=== PATIENT | male | born 1940 | race Caucasian/White ===

== ENCOUNTER 2019-02-02 22:10 | Inpatient (IN) | payer MEDICARE ==
[2019-02-02] MEDS ORDERED: NS 0.9% 1000 ML** 1,000 ML IV ONE (22:20)
[2019-02-02] MEDS ORDERED: Morphine 4 MG/ML VIAL (1 ml) 4 MG/ML VIAL IV ONE (22:20)
[2019-02-02] MEDS ORDERED: Ondansetron INJ* 2 MG/ML VIAL IV ONE (22:21)
--- NOTE | 2019-02-02 22:43 | ED ---
GI/ HPI - HPI Summary HPI Summary: 78-year-old male presents with abdominal pain today. He states he had pain in his epigastric region that radiates to the back. He states that he feels clammy. Denies any chest pressures or shortness of breath. He admits to nausea vomiting. No diarrhea or constipation. He had a normal bowel movement today. no blood in his stool. No urinary symptoms. He has never had this pain before. Denies any previous belly surgeries. Has history of high cholesterol and high blood pressure. He states it feels similar to gas pain. He hasn't taking anything for his symptoms. States his pain started 2:00pm and hasn't gotten worse. denies any urinary symptoms. no loss of bowel or bladder or saddle ansethesia. - History of Current Complaint Chief Complaint: EDAbdPain Time Seen by Provider: 02/02/19 22:15 Stated Complaint: ABD PAIN PER EMS Pain Intensity: 10 - Allergy/Home Medications Allergies/Adverse Reactions: Allergies Allergy/AdvReac Type Severity Reaction Status Date / Time No Known Allergies Allergy Verified 02/02/19 22:12 Home Medications: Home Medications Aspirin 81 mg PO DAILY 02/02/19 [History Confirmed 02/02/19] Atenolol 25 mg PO DAILY 02/02/19 [History Confirmed 02/02/19] Losartan Potassium 20 mg PO DAILY 02/02/19 [History Confirmed 02/02/19] Simvastatin 40 mg PO DAILY 02/02/19 [History Confirmed 02/02/19] PMH/Surg Hx/FS Hx/Imm Hx Endocrine/Hematology History: Denies: Hx Anticoagulant Therapy Cardiovascular History: Reports: Hx Hypercholesterolemia, Hx Hypertension Infectious Disease History: No Infectious Disease History: Denies: Traveled Outside the [place] in Last 30 Days - Family History Known Family History: Positive: Hypertension - Social History Substance Use Type: Reports: None Hx Tobacco Use: No Review of Systems Negative: Fever Negative: Chest Pain Negative: Shortness Of Breath Positive: Abdominal Pain, Vomiting, Nausea. Negative: Diarrhea All Other Systems Reviewed And Are Negative: Yes Physical Exam Triage Information Reviewed: Yes Vital Signs On Initial Exam: Initial Vitals Temp Pulse Resp BP Pulse Ox 98.3 F 58 20 156/88 94 02/02/19 22:12 02/02/19 22:12 02/02/19 22:12 02/02/19 22:12 02/02/19 22:12 Vital Signs Reviewed: Yes Appearance: Positive: Well-Appearing Skin: Positive: Warm, Dry Head/Face: Positive: Normal Head/Face Inspection Eyes: Positive: Normal, Conjunctiva Clear ENT: Positive: Pharynx normal Respiratory/Lung Sounds: Positive: Clear to Auscultation, Breath Sounds Present Cardiovascular: Positive: Normal, RRR Abdomen Description: Positive: Soft, Other: - tenderness epigastric. Negative: CVA Tenderness (R), CVA Tenderness (L) Bowel Sounds: Positive: Present Musculoskeletal: Positive: Normal Neurological: Positive: Normal Psychiatric: Positive: Normal Diagnostics - Vital Signs Vital Signs Temp Pulse Resp BP Pulse Ox 02/02/19 22:27 22 02/02/19 22:25 73 20 149/79 93 02/02/19 22:22 77 92 02/02/19 22:12 98.3 F 58 20 156/88 94 - Laboratory Result Diagrams: 02/02/19 22:41 02/02/19 22:41 Lab Statement: Any lab studies that have been ordered have been reviewed, and results considered in the medical decision making process. - CT abd CT Interpretation Completed By: Radiologist Summary of CT Findings: IMPRESSION: 1. No acute vascular findings. 2. Distended stomach and small bowel loop to the level of proximal ileum which. contains fecal material, most consistent with developing high grade small bowel. obstruction. 3. Colonic diverticulosis with no evidence of acute diverticulitis. 4. A small hiatal hernia. 5. Enlarged prostate gland. - EKG No standard instances Cardiac Rate: NL EKG Rhythm: Sinus Rhythm Summary of EKG Findings: sinus rhythm Re-Evaluation - Re-Evaluation First Eval Re-Evaluation Time: 23:57 Change: Improved Comment: pain resolved Second Eval Comment: only complaining of back pain now, states has not passed gas since this morning. GIGU Course/Dx - Course Course Of Treatment: 78-year-old male presents with abdominal pain today. He states he had pain in his epigastric region that radiates to the back. He states that he feels clammy. Denies any chest pressures or shortness of breath. He admits to nausea vomiting. No diarrhea or constipation. He had a normal bowel movement today. no blood in his stool. No urinary symptoms. He has never had this pain before. Denies any previous belly surgeries. Has history of high cholesterol and high blood pressure. He states it feels similar to gas pain. He hasn't taking anything for his symptoms. States his pain started 2:00pm and hasn't gotten worse. on exam tenderness in epigastric region. ekg shows sinus rhythm. wbc 12. troponin zero. crp 10. got CTA as has risk factors for AAA. no pulsatile mass felt. CT shows high grade small bowel obstruction. patient claims that has been burping. discussed case with dr lu who says to call surgery. spoke with dr anaya who will consult. - Diagnoses Differential Diagnoses - Male: Bowel Obstruction, Gastritis, Other - AAA Provider Diagnoses: Small bowel obstruction Discharge - Sign-Out/Discharge Documenting (check all that apply): Patient Departure - Discharge Plan Condition: Stable Disposition: ADMITTED TO [facility] Referrals: Tammi Shay MD [Primary Care Provider] - - Billing Disposition and Condition Condition: STABLE Disposition: Admitted to [facility]
[2019-02-02 23:03] LABS: ABS Basophils 0.1 10^3/ul (0-0.2); ABS Eosinophils 0.3 10^3/ul (0-0.6); ABS Lymphocytes 1.6 10^3/ul (1.0-4.8); ABS Monocytes 0.6 10^3/ul (0-0.8); ABS Neutrophils 9.3 10^3/ul (1.5-7.7); Eosinophil % 2.7 %; Hematocrit 46 % (42-52); Hemoglobin 14.8 g/dL (14.0-18.0); Lymphocyte % 13.8 %; Mean Corpuscular HGB Conc 33 g/dL (31-36); Mean Corpuscular Hemoglobin 28 pg (27-31); Mean Corpuscular Volume 86 fL (80-94); Mean Platelet Volume 8.7 fL (7.4-10.4); Nucleated Red Blood Cells % 0.1; Platelet Count 297 10^3/uL (150-450); Red Blood Count 5.32 10^6 /uL (4.18-5.48); Red Cell Distribution Width 16 % (10.5-15)
[2019-02-02 23:17] LABS: ALT 11 U/L (7-52); AST 12 U/L (13-39); Albumin 3.8 g/dL (3.2-5.2); Albumin/Globulin Ratio 1.5 (1-3); Alkaline Phosphatase 93 U/L (34-104); Anion Gap 7 mmol/L (2-11); Blood Urea Nitrogen 17 mg/dL (6-24); C Reactive Protein 10.31 mg/L (<8.01); CO2 Carbon Dioxide 24 mmol/L (22-32); Calcium 8.4 mg/dL (8.6-10.3); Chloride 110 mmol/L (101-111); EGFR African American 111.8 (>60); EGFR Non-African American 92.4 (>60); Globulin 2.6 g/dL (2-4); Glucose 151 mg/dL (70-100); Sodium 141 mmol/L (135-145); Total Protein 6.4 g/dL (6.4-8.9)
[2019-02-02] MEDS ORDERED: Iodixanol* (CONTRAST) 320 MG/ML 100 ML SDV IV ONE (23:31)
[2019-02-03] MEDS ORDERED: Ondansetron INJ* 2 MG/ML VIAL IV PRN (02:25)
[2019-02-03] MEDS ORDERED: Morphine INJ* 2 MG/ML 1 ML SYRINGE (TWO MG - NEW SYRINGE VERSION) IV PRN (02:33)
[2019-02-03] MEDS: NS 0.9% 1000 ML** 1,000 ML IV SCH ×2 (03:47→16:48)
--- NOTE | 2019-02-03 05:35 | HP ---
HISTORY AND PHYSICAL: DATE OF ADMISSION: 02/03/19 ADMITTING PROVIDER: Tadeo Ambriz MD PRIMARY CARE PROVIDER: Dr. Tammi Shay. CONSULTING GENERAL SURGEON: Dr. Vu Forbes. CHIEF COMPLAINT: Epigastric pain, nausea. HISTORY OF PRESENT ILLNESS: Chiki De Paz is a 78-year-old male with past medical history of hypertension, hyperlipidemia, obesity, borderline diabetes. He is a somewhat poor historian but relates that he developed 10/10 sharp epigastric pain radiating to his back around 6 p.m. (versus 2 p.m. told to ED provider). He first said his last bowel movement was morning of presentation to ED(02/02/19); but now says it was the night prior (02/01). He says he is not passing gas and he has been having a lot of burping sensations over the last 2 weeks. Otherwise, he has been in his regular state of health. Denies any history of abdominal surgeries. His current pain is about 4/10 after an NG tube was placed. He had a CT chest, abdomen, and pelvis, which showed potentially developing high-grade small bowel obstruction. There is a distended stomach with small bowel loops to the level approximately ileum which contains fecal matter. He has colonic diverticulosis without acute diverticulitis, small hiatal hernia. He has been admitted to the Medicine Service with General Surgery consulting. He desires to be DNR/DNI and is actually unsure whether or not he would actually want a surgery if he needed one (says would talk to his son who is a RN first). PAST MEDICAL HISTORY: Hypertension, hyperlipidemia, borderline diabetes, obesity. MEDICATIONS: Include: 1. Atenolol 25 mg daily. 2. Aspirin 81 mg daily. 3. Simvastatin 40 mg daily. 4. Losartan 50 mg daily. ALLERGIES: No known drug allergies. FAMILY HISTORY: Mother of old age at the age of 67. He is not sure about other issues. He did not know his father. He had 1 sister, 1 brother, and 1 half sister. SOCIAL HISTORY: The patient is retired, formerly worked at [employer] for about 5 years. He is a former smoker between teenage years and the year 1997, so approximately 30 years 1 pack per day, so 30 pack years. He is an occasional alcohol user. Denies ever heavy use. No drug use. Medical surrogate is his son, Chiki De Paz Junior, who is a nurse. He desires to be DNR/DNI. REVIEW OF SYSTEMS: A complete 14-point review of systems is negative except as per HPI. PHYSICAL EXAMINATION GENERAL APPEARANCE: In no acute distress. VITAL SIGNS: Temperature 98.3, pulse rate 83, respiratory rate 23, oxygen sat 93, blood pressure 162/84. HEENT: Normocephalic, atraumatic. Pupils are equal, round, and reactive to light. Extraocular motions intact. No scleral icterus. LUNGS: Clear to auscultation bilaterally. No wheezing, rales, or rhonchi. CARDIOVASCULAR: Regular rate and rhythm. No murmurs, rubs, or gallops. ABDOMEN: Soft, epigastric tenderness. No rebound. No guarding. No Neville sign. Obese. EXTREMITIES: Warm, well perfused. No peripheral edema. NEUROLOGIC: Moving all extremities. Cranial nerves intact. SKIN: No lesions. No rashes. DIAGNOSTIC STUDIES/LAB DATA: White count 12.0, hemoglobin 14.8, hematocrit 46 , platelets 297. Sodium 141, potassium 4.0, chloride 110, carbon dioxide 24, BUN 17, creatinine 0.81, glucose 151, lactic acid 1.9, calcium 8.4. Total bili 0.3, AST 12, ALT 11, alk phos 93. Troponin 0.00. CRP 10.3, lipase less than 10. Imaging: CT abdomen and pelvis demonstrated: 1) Distended stomach with small bowel loops to the level of approximately ileum , which contains fecal matter, most consistent with developing high-grade small bowel obstruction. 2) Colonic diverticulosis with no evidence of acute diverticulitis. 3) No acute vascular findings. 4) A small hiatal hernia. 5) Enlarged prostate gland. EKG demonstrated normal sinus rhythm, T-wave inversions in III and aVF, poor R- wave progression, and x2 anterior fascicular block. ASSESSMENT AND PLAN: Chiki Delgadillo is a 78-year-old man with past medical history of obesity, hypertension, hyperlipidemia, never with abdominal surgeries, presenting with epigastric pain radiating to back, nausea with no vomiting and no stool for the last 24 hours, not passing gas, and CT findings consistent with developing high-grade small bowel obstruction. Dr. Vu Forbes of Surgery has been consulted and hopefully will follow up in the morning, and a G-tube has been placed to see if we can decompress the bowels. Keep n.p.o., put him on maintenance IV fluid with NS 125cc/hr. I will give him Zofran for nausea p.r.n. For his hypertension, I will continue his atenolol and losartan. Will need to fill out [facility] paperwork as he desires to be a DNR/ DNI. We will continue morphine IV for pain control. DVT ppx: heparin 5000 TID. Medical surrogate is his son, Chiki De Paz Junior. [id number]/[facility] #: [id number] [facility]
[2019-02-03 06:57] LABS: Urine Appearance Clear; Urine Bilirubin Negative (Negative); Urine Blood Negative (Negative); Urine Color Yellow; Urine Glucose Negative (Negative); Urine Ketones Negative (Negative); Urine Nitrite Negative (Negative); Urine Protein Negative (Negative); Urine Specific Gravity > 1.060 (1.010-1.030); Urine Urobilinogen Negative (Negative)
[2019-02-03] MEDS ORDERED: LOSARTAN POTASSIUM 20 MG PO SCH (09:00)
[2019-02-03] MEDS: Atenolol TAB* 25 MG PO SCH (11:22)
[2019-02-03] MEDS: Aspirin EC TAB* 81 MG TAB.EC PO SCH (11:22)
[2019-02-03] MEDS: Atorvastatin* 20 MG TAB PO SCH (11:22)
[2019-02-03] MEDS: Losartan TAB* 25 MG PO SCH (11:22)
--- NOTE | 2019-02-03 13:27 | CONS ---
CONSULTATION REPORT: DATE OF CONSULT: 02/03/19 REFERRING PROVIDER: Dr. Tadeo Ambriz, hospitalist. REASON FOR CONSULT: Epigastric pain, nausea, and CT scan showing small bowel obstruction. HISTORY OF PRESENT ILLNESS: Mr. Chiki eD Paz is a pleasant 78-year-old gentleman with a past medical history of hypertension, hyperlipidemia, obesity, and diabetes, who developed some abdominal distension with upper abdominal pain with mild nausea yesterday in the afternoon. He states he has not had any prior abdominal surgery. He had a normal bowel movement several days ago, which is not unusual for him. When his distension worsened, he presented to the emergency room. He was noted to have a white blood cell count of 12,000. Lactic acid was normal and C-reactive protein was 10.31. Liver transaminase and bilirubin were unremarkable. He underwent a CAT scan of the abdomen and pelvis. I did review these images. This does show a stomach distension as well as proximal small bowel distension up to the proximal ileum with distally more collapsed bowel. There was no free intraluminal air, fluid, rather acute findings. There was some fecalization of the small bowel proximal to the area of transition. There was no evidence of what appeared to be an internal hernia or volvulus. There was some diverticulosis and no evidence of appendicitis. A nasogastric tube was inserted and the patient was admitted to the hospitalist service and surgical consultation was obtained. Overnight and early this morning, the patient said he is feeling much better. He is not having any abdominal pain. His nasogastric tube has drained a minimal amount. He said he is passing large amounts of flatus. He has no pain at rest. PAST MEDICAL HISTORY: 1. Hypertension. 2. Hyperlipidemia. 3. Borderline diabetes. 4. Obesity. MEDICATIONS: Include: 1. Atenolol. 2. Aspirin. 3. Simvastatin. 4. Losartan. ALLERGIES: He has no known drug allergies. FAMILY HISTORY: His mother of old age at age 67, he is not sure about other issues. He does not know his father. He has a sister and brother who live in the area. SOCIAL HISTORY: He is retired. He is a former smoker. He is an occasional alcohol user. He denies use of heavy drugs. His medical surrogate is his son, Chiki De Paz Junior. REVIEW OF SYSTEMS: A complete 14-point review of systems is negative except per the above HPI. PHYSICAL EXAM: Temperature 97.8, pulse 81, respirations 16, blood pressure 151/ 83. In general, he is a well-developed, well-nourished male, who appears younger than his stated age. He is in no apparent distress. He is quite alert , conversive, and very pleasant. His lungs were clear to auscultation with normal respiratory effort. Heart with regular rate and rhythm without murmurs, rubs, or gallops. The abdomen is soft, but it is slightly distended. He has diminished bowel sounds throughout. There is no high-pitch bowel sounds or tinkling noted. There are no prior surgical incisions noted. I appreciate no umbilical or inguinal hernias. He has some very mild tenderness on deeper palpation in the epigastric area, but there is no rebound, guarding, rigidity, or peritoneal irritation throughout. Psychiatric: He is awake, alert, and oriented x3. He has normal judgment and insight. IMPRESSION: Small bowel obstruction by CT scan with a clinical history of some abdominal distension with nausea without vomiting. He does state that he is passing flatus since he arrived at the floor early this morning. He has no pain at rest. He has no tachycardia, fever. He has a normal lactic acid. His white blood cell count was very mildly elevated. I reviewed all the findings with him here at the bedside. He has had no prior abdominal surgery but still can have adhesive bands that would present with a sudden onset of his symptoms. He also states that he started eating peanuts again and he had similar issue with them several years ago and this resolved spontaneously without medical care. He does have some fecalization of the small bowel proximal to the area of transition and this may indicate more of a chronic situation, and we will have to follow him closely. PLAN: The plan now is to continue observation. He has a nasogastric tube in and we will keep that in place. He will be kept n.p.o. and continued on IV fluids. We will follow him closely with repeat abdominal x-rays tomorrow. There is no acute or urgent surgical indication at this point, but however, if he does not improve or clinically worsens in the next 24 to 48 hours, he will require a laparoscopy with possible exploratory laparotomy and I discussed this with him. Thank you very much for this consultation. [id number]/[facility] #: [id number] GISSEL
--- NOTE | 2019-02-03 16:35 | PN ---
Subjective Date of Service: 02/03/19 Interval History: Patient seen and examined in AM. States he feels nauseous and has been vomiting. NG tube per RN was clogged. Denies any fever or chills, states abdomen is diffusely tender, but not overly painful. No further complaints. Passing flatus. Objective Active Medications: Aspirin (Aspirin Ec Tab*) 81 mg PO DAILY [facility] Last Admin: 02/03/19 11:22 Dose: Not Given Atenolol (Tenormin Tab*) 25 mg PO DAILY [facility] Last Admin: 02/03/19 11:22 Dose: Not Given Atorvastatin Calcium (Lipitor*) 20 mg PO DAILY [facility] Last Admin: 02/03/19 11:22 Dose: Not Given Sodium Chloride (Ns 0.9% 1000 Ml) 1,000 mls @ 125 mls/hr IV PER RATE [facility] Stop: 02/03/19 22:44 Last Admin: 02/03/19 03:47 Dose: 125 mls/hr Losartan Potassium (Cozaar Tab*) 50 mg PO DAILY [facility] Last Admin: 02/03/19 11:22 Dose: Not Given Morphine Sulfate (Morphine Inj (Syringe))*) 1 mg IV Q3H PRN PRN Reason: PAIN Ondansetron HCl (Zofran Inj*) 4 mg IV Q6H PRN PRN Reason: NAUSEA Vital Signs - 8 hr 02/03/19 11:27 Temperature 98.6 F Pulse Rate 83 Respiratory 16 Rate Blood Pressure 149/86 (mmHg) O2 Sat by Pulse 93 Oximetry Oxygen Devices in Use Now: None Appearance: alert, NAD Eyes: No Scleral Icterus, PERRLA Ears/Nose/Mouth/Throat: NL Teeth, Lips, Gums, Mucous Membranes Moist Neck: NL Appearance and Movements; NL JVP, Trachea Midline Respiratory: Symmetrical Chest Expansion and Respiratory Effort, Clear to Auscultation Cardiovascular: NL Sounds; No Murmurs; No JVD, RRR, No Edema Abdominal: - - no BS, passing flatus, firm, distended Extremities: No Edema, No Clubbing, Cyanosis Skin: No Rash or Ulcers Neurological: Alert and Oriented x 3 Nutrition: - - NPO Result Diagrams: 02/02/19 22:41 02/02/19 22:41 Diagnostic Imaging: [facility] Patient Name:SARAHI MILAN MR: [id number] : 1940 CT CHEST/ABD/PELVIS IMPRESSION: 1. No acute vascular findings. 2. Distended stomach and small bowel loop to the level of proximal ileum which contains fecal material, most consistent with developing high grade small bowel obstruction. 3. Colonic diverticulosis with no evidence of acute diverticulitis. 4. A small hiatal hernia. 5. Enlarged prostate gland. To contact [facility] with a general question: [facility] - [phone] For direct physician to physician contact: Physician Hotline - [phone] [facility] ([facility] Facility ID #[id number]) <Electronically signed by Carole Pennington MD in OV> 02/03/1932 Dictated By: Carole Pennington MD Dictated Date/Time: 02/03/1932 Transcribed Date/Time: Copy to: Assess/Plan/Problems-Billing Assessment: This is a 78 year old with history of HTM, DM, HLP that presented to the ED with complaints of abdominal pain and distension, admitted for SBO. - Patient Problems (1) Small bowel obstruction Code(s): K56.609 - UNSP INTESTNL OBST, UNSP TO PARTIAL VERSUS COMPLETE OBST SNOMED Code(s): 473876040 Comment: - No hx of abdominal surgery, no adhesions - Surgery consult appreciated - NG tube placed - Antiemetics PRN - IVF, NPO - No immediate surgical intervention required, non-toxic appearing - Continue bowel rest, f/u imaging in AM (2) Hypertension Code(s): I10 - ESSENTIAL (PRIMARY) HYPERTENSION SNOMED Code(s): 67846201 Comment: - Continue atenolol and losartan (3) Diabetes Code(s): E11.9 - TYPE 2 DIABETES MELLITUS WITHOUT COMPLICATIONS SNOMED Code(s) : 41549609 Comment: - Diet controlled, currently NPO (4) DVT prophylaxis Code(s): Z29.9 - ENCOUNTER FOR PROPHYLACTIC MEASURES, UNSPECIFIED SNOMED Code( s): 042270809 Comment: - HSQ Status and Disposition: Inpatient
[2019-02-04] MEDS: NS 0.9% 1000 ML** 1,000 ML IV SCH ×2 (01:53→11:10)
[2019-02-04] MEDS: Heparin VIAL(*) 5000 UNITS/ML VIAL (FIVE THOUSAND) SUBCUT SCH ×3 (06:13→22:08)
[2019-02-04] MEDS: Atenolol TAB* 25 MG PO SCH (09:24)
[2019-02-04] MEDS: Aspirin EC TAB* 81 MG TAB.EC PO SCH (09:24)
[2019-02-04] MEDS: Atorvastatin* 20 MG TAB PO SCH (09:24)
[2019-02-04] MEDS: Losartan TAB* 25 MG PO SCH (09:24)
[2019-02-04] MEDS ORDERED: Bisacodyl SUPP* 10 MG SUPP PR ONE (09:58)
--- NOTE | 2019-02-04 10:09 | PN ---
Progress Note - Progress Note Date of Service: 02/04/19 SOAP: Subjective:hospital day #2 small bowel obstruction no abd pain today,passing a lot of flatus,no stool yet,no n/v [] Objective: Vital Signs Temp 97.9 F 02/04/19 07:46 Pulse 69 02/04/19 07:46 Resp 17 02/04/19 07:46 BP 129/72 02/04/19 07:46 Pulse Ox 94 02/04/19 07:46 Intake & Output 02/03/19 02/04/19 02/04/19 18:59 06:59 18:59 Intake Total 969 0 Output Total 600 350 Balance 369 -350 Intake: IV Fluids 969 NS (0.9%) 969 Oral 0 0 Output: NG Tube Drainage Amount 600 Urine 350 Other: # Bowel Movements 2 0 Estimated Stool Amount Medium abd:obese,+bs,soft,nontender to deep palpation,no obvious masses or ventral hernias []AXR:nondilated small bowel,large amt stool in colon Assessment:clincally improved GI function [] Plan:clear liquid diet Dulcolax suppository consider hep lock IV if po intake sufficient []
--- NOTE | 2019-02-04 14:46 | PN ---
Progress Note - Progress Note Date of Service: 02/04/19 Note: 02/04/19 1445 pt had bowel movement and continues to pass flatus;is hungry and tolerated clears;willadvance to full liquids for dinner and hep lock CARLA Reveles
--- NOTE | 2019-02-04 19:17 | PN ---
Subjective Date of Service: 02/04/19 Interval History: Patient seen and examined. NG tube out, patient states nausea is resolved. Denies abdominal pain, no cramping, had 2 BMs overnight. Objective Active Medications: Aspirin (Aspirin Ec Tab*) 81 mg PO DAILY [facility] Last Admin: 02/04/19 09:24 Dose: 81 mg Atenolol (Tenormin Tab*) 25 mg PO DAILY [facility] Last Admin: 02/04/19 09:24 Dose: 25 mg Atorvastatin Calcium (Lipitor*) 20 mg PO DAILY [facility] Last Admin: 02/04/19 09:24 Dose: 20 mg Heparin Sodium (Porcine) (Heparin Vial(*)) 5,000 units SUBCUT Q8HR [facility] Last Admin: 02/04/19 14:30 Dose: 5,000 units Losartan Potassium (Cozaar Tab*) 50 mg PO DAILY [facility] Last Admin: 02/04/19 09:24 Dose: 50 mg Morphine Sulfate (Morphine Inj (Syringe))*) 1 mg IV Q3H PRN PRN Reason: PAIN Ondansetron HCl (Zofran Inj*) 4 mg IV Q6H PRN PRN Reason: NAUSEA Vital Signs - 8 hr 02/04/19 02/04/19 11:17 16:07 Temperature 98.1 F 97.8 F Pulse Rate 63 61 Respiratory 17 16 Rate Blood Pressure 160/86 136/80 (mmHg) O2 Sat by Pulse 98 98 Oximetry Oxygen Devices in Use Now: None Appearance: alert, NAD Eyes: No Scleral Icterus, PERRLA Ears/Nose/Mouth/Throat: NL Teeth, Lips, Gums, Mucous Membranes Moist Neck: NL Appearance and Movements; NL JVP, Trachea Midline Respiratory: Symmetrical Chest Expansion and Respiratory Effort, Clear to Auscultation Cardiovascular: NL Sounds; No Murmurs; No JVD, RRR, No Edema Abdominal: NL Sounds; No Tenderness; No Distention, - - +[id number], passing flatus BMx2 Extremities: No Edema, No Clubbing, Cyanosis Skin: No Rash or Ulcers, No Nodules or Sclerosis Neurological: Alert and Oriented x 3, NL Sensation, NL Gait Nutrition: Taking PO's, - - tolerating CLD Result Diagrams: 02/02/19 22:41 02/02/19 22:41 Diagnostic Imaging: [facility] Patient Name:SARAHI MILAN MR: [id number] : 1940 CT CHEST/ABD/PELVIS IMPRESSION: 1. No acute vascular findings. 2. Distended stomach and small bowel loop to the level of proximal ileum which contains fecal material, most consistent with developing high grade small bowel obstruction. 3. Colonic diverticulosis with no evidence of acute diverticulitis. 4. A small hiatal hernia. 5. Enlarged prostate gland. To contact [facility] with a general question: [facility] - [phone] For direct physician to physician contact: Physician Hotline - [phone] [facility] ([facility] ID #[id number]) <Electronically signed by Carole Pennington MD in OV> 02/03/1932 Dictated By: Carole Pennington MD Dictated Date/Time: 02/03/1932 Transcribed Date/Time: Copy to: Assess/Plan/Problems-Billing Assessment: This is a 78 year old with history of HTM, DM, HLP that presented to the ED with complaints of abdominal pain and distension, admitted for SBO. - Patient Problems (1) Small bowel obstruction Code(s): K56.609 - UNSP INTESTNL OBST, UNSP TO PARTIAL VERSUS COMPLETE OBST SNOMED Code(s): 652195337 Comment: - No hx of abdominal surgery, no adhesions - Surgery following, no immediate surgical need - NG tube DCd - Antiemetics PRN - Follow up abd xray with some resolution today - Tolerating CLD, surgery advanced to FLD for dinner - IVF discontinued (2) Hypertension Code(s): I10 - ESSENTIAL (PRIMARY) HYPERTENSION SNOMED Code(s): 24807685 Comment: - Continue atenolol and losartan (3) Diabetes Code(s): E11.9 - TYPE 2 DIABETES MELLITUS WITHOUT COMPLICATIONS SNOMED Code(s) : 16561627 Comment: - Diet controlled, currently NPO (4) DVT prophylaxis Code(s): Z29.9 - ENCOUNTER FOR PROPHYLACTIC MEASURES, UNSPECIFIED SNOMED Code( s): 034656881 Comment: - HSQ Status and Disposition: Inpatient, dispo as per surgery
[2019-02-05] MEDS: Heparin VIAL(*) 5000 UNITS/ML VIAL (FIVE THOUSAND) SUBCUT SCH (05:26)
[2019-02-05] MEDS ORDERED: Losartan TAB* 25 MG PO SCH (07:52)
[2019-02-05] MEDS ORDERED: Atenolol TAB* 25 MG PO SCH (07:52)
[2019-02-05] MEDS: Aspirin EC TAB* 81 MG TAB.EC PO SCH (07:54)
[2019-02-05] MEDS: Atorvastatin* 20 MG TAB PO SCH (07:54)
--- NOTE | 2019-02-05 09:59 | PN ---
Progress Note - Progress Note Date of Service: 02/05/19 Note: Surgery Progress: S: Denies pain, N/V. Demetrio'd full liq diet this a.m. (and would like more). Had 2 BMs yesterday, along with sig flatus. O: Vital Signs - 8 hr 02/05/19 02/05/19 02/05/19 03:23 07:35 07:50 Temperature 97.9 F 97.6 F Pulse Rate 61 53 Respiratory 16 14 16 Rate Blood Pressure 110/62 119/61 (mmHg) O2 Sat by Pulse 96 97 Oximetry Intake and Output Last 24 Hours 02/03/19 02/04/19 02/05/19 02/06/19 06:59 06:59 06:59 06:59 Intake Total 1624 604 7138 Output Total 430 950 900 300 Balance 089 84 9781 -300 Weight 220 lb Intake: IV Fluids 1000 969 990 NS (0.9%) 969 990 Oral 0 0 1860 Output: NG Tube Drainage Amount 120 600 Urine 310 350 900 300 Other: Estimated Void Medium # Bowel Movements 0 0 1 Estimated Stool Amount Medium Large # Voids 1 Heart: reg Lungs: clear ant Abd: obese; distended?; +BS; soft, nontender to palp AXR from 02/04 reviewed; sig stool in colon A: SBO, resolving P: could advance diet further, either here or at home. Patient asks if this is likely to recur. I told him it could, though that would not be expected. Surgical intervention would be addressed with each individual episode, based on clinical factors, with the understanding that most episodes resolve on their own with conservative treatment. The fact that he has had no prior surgery can be a factor for deciding earlier in favor of diagnostic laparoscopy or exploratory laparotomy.
--- NOTE | 2019-02-05 12:04 | PN ---
Subjective Date of Service: 02/05/19 Interval History: Mr. De Paz reports that he feels well. He has had at least two bowel movements. He is tolerating a full liquid diet well. He denies abdominal pain or nausea. He is eager for discharge to home. Objective Active Medications: Aspirin (Aspirin Ec Tab*) 81 mg PO DAILY [facility] Atenolol (Tenormin Tab*) 25 mg PO DAILY [facility] Atorvastatin Calcium (Lipitor*) 20 mg PO DAILY [facility] Heparin Sodium (Porcine) (Heparin Vial(*)) 5,000 units SUBCUT Q8HR [facility]ERY[facility] Losartan Potassium (Cozaar Tab*) 50 mg PO DAILY [facility] Morphine Sulfate (Morphine Inj (Syringe))*) 1 mg IV Q3H PRN Ondansetron HCl (Zofran Inj*) 4 mg IV Q6H PRN Vital Signs: Temp Pulse Resp BP Pulse Ox 97.6 F 53 16 119/61 97 02/05/19 07:35 02/05/19 07:35 02/05/19 07:50 02/05/19 07:35 02/05/19 07:35 Oxygen Devices in Use Now: None Appearance: Male lying in bed in NAD Eyes: No Scleral Icterus Ears/Nose/Mouth/Throat: Mucous Membranes Moist Neck: Trachea Midline Respiratory: Symmetrical Chest Expansion and Respiratory Effort, Clear to Auscultation Cardiovascular: NL Sounds; No Murmurs; No JVD, No Edema Abdominal: NL Sounds; No Tenderness; No Distention Lymphatic: No Cervical Adenopathy Extremities: No Edema Skin: No Rash or Ulcers Neurological: Alert and Oriented x 3, NL Muscle Strength and Tone Nutrition: Taking PO's Result Diagrams: 02/02/19 22:41 02/02/19 22:41 Diagnostic Imaging: . Assess/Plan/Problems-Billing Assessment: Mr. De Paz is a 78 year old with history of HTM, DM, HLP that presented to the ED with complaints of abdominal pain and distension, admitted for SBO. - Patient Problems (1) Small bowel obstruction Comment: - Resolved, no pain or nausea, tolerating oral intake, has had BMs. - Appreciate surgery consultation. No hx of abdominal surgery, no adhesions. Resume regular diet. (2) Diabetes Comment: - Diet controlled (3) Hypertension Comment: - Continue atenolol and losartan (4) DVT prophylaxis Comment: - HSQ Status and Disposition: Inpatient, discharge to home.
[2019-02-05 13:40] VITALS: BP 147/78
--- NOTE | 2019-02-05 15:38 | DS ---
CC: Dr. Shay * DISCHARGE SUMMARY: DATE OF ADMISSION: 02/03/19 DATE OF DISCHARGE: 02/05/19 PRIMARY CARE PHYSICIAN: Dr. Shay. ATTENDING PHYSICIAN: Dr. Coombs * (dictated provided by Melinda Garber NP). PRIMARY DIAGNOSIS: Small bowel obstruction. SECONDARY DIAGNOSES: 1. Hypertension. 2. Hyperlipidemia. 3. Borderline diabetes. 4. Obesity. MEDICATIONS AT THE TIME OF DISCHARGE: 1. Atenolol 12.5 mg p.o. daily (new, lower dose). 2. Aspirin 81 mg p.o. daily. 3. Simvastatin 40 mg p.o. daily. 4. Losartan 50 mg p.o. daily. HOSPITAL COURSE: Mr. De Paz is a 78-year-old male with a past medical history of hypertension, hyperlipidemia, and diabetes, who presented to the hospital on 02/03/19 with concern for epigastric pain and nausea. Please see the dictated H and P from Tadeo Ambriz MD for complete details. In brief, the patient states that he developed 10/10 epigastric pain radiating to his back at about 6 p.m. on the night of admission. He was unclear but stated his last bowel movement was either 02/01/19 or 02/02/19. In the emergency room, he had a chest, abdomen and pelvis CTA, which showed the following: "Distended stomach and small bowel loop to the level of the proximal ileum, which contains fecal material, most consistent with developing high-grade small bowel obstruction." Other findings on that CTA were "no acute vascular findings, colonic diverticulosis with no evidence of acute diverticulitis, small hiatal hernia, enlarged prostate gland." The patient had labs, which showed white blood cell count of 12 but were otherwise unremarkable. Mr. De Paz was admitted to the hospital. He was seen in consultation by Dr. Vu Forbes from the surgical team and I referred to his note for complete details but in brief, he recommended conservative medical management with NG tube placement, IV fluids and repeat abdominal x-rays. The patient had a followup abdominal x-ray on 02/04/19, which showed "nonspecific bowel gas pattern. Large amount of stool throughout the colon." Patient was noted to have a bowel movement on 02/04/19 and again in the a.m. on 02/05/19. Today, he is able to tolerate a full liquid diet. He has no abdominal pain or nausea. The patient has been followed by the surgical team and he has been deemed appropriate for discharge to home today and we agree. The patient is tolerating oral intake well. The only thing noted during this hospitalization is that Mr. De Paz's heart rate tends to run around 50 to 60. He is on atenolol 25 mg and losartan. Plan to cut the atenolol in half to 12.5 mg p.o. daily until he follows up with Dr. Shay. The patient is asymptomatic. DISPOSITION: To home. DIET: Low fat, low salt, low carb, high fiber. ACTIVITY: As tolerated. FOLLOWUP PLANS: Please follow up with Dr. Shay within the next week. TIME SPENT: Approximately 60 minutes was spent on the discharge of this patient , more than half of the time was spent with the patient at the bedside reviewing the events leading up to this hospitalization and during this hospitalization, performing the physical examination and reviewing my plan of care. MELINDA GARBER NP [id number]/[facility] #: [id number] GISSEL
== END 2019-02-05 14:13 | disposition home or self-care (01) | DRG 390 ==
LOC: ED 22:10 → SSU 02-03 02:09
PROVIDERS: ADMIT Internal Medicine; ATTEND Student in an Organized Health Care Education/Training Program
PROC: 0D9670Z Drainage of Stomach with Drainage Device, Via Natural or Artificial Opening (ICD-10-PCS; principal; 2019-02-03)
DX: K56.609 Unspecified intestinal obstruction, unspecified as to partial versus complete obstruction (principal); I10 Essential (primary) hypertension; E78.5 Hyperlipidemia, unspecified; R73.03 Prediabetes; E66.9 Obesity, unspecified; K57.30 Diverticulosis of large intestine without perforation or abscess without bleeding; K44.9 Diaphragmatic hernia without obstruction or gangrene; Z66 Do not resuscitate; Z68.33 Body mass index [BMI] 33.0-33.9, adult; Z79.82 Long term (current) use of aspirin; Z79.899 Other long term (current) drug therapy; Z87.891 Personal history of nicotine dependence
CPT/HCPCS: 36415; 71275; 74019; 74174; 80053; 81003; 83605; 83690; 84484; 85025; 86140; 93005; 99284; A9270-GY; J1644; J2270; J2405; Q9967